=== PATIENT | female | born 1985 | race American Indian/Alaskan Native ===

== ENCOUNTER 2018-05-31 00:50 | Emergency (ER) | payer OTHER ==
--- NOTE | 2018-05-31 04:15 | Emergency Department Report ---
<NICOLÁS NAVARRETE - Last Filed: 05/31/18 05:25> ED Female HPI - General Chief complaint: Urogenital-Female Stated complaint: SMELL FROM VAGINA WITH PAIN Time Seen by Provider: 05/31/18 03:41 Source: patient Mode of arrival: Ambulatory Limitations: No Limitations - History of Present Illness Initial comments: 3-year-old -[place] female presents to the emergency room for vaginal itching with thick white odorous vaginal discharge 3 days. Patient denies any fever chills no abdominal pain. She reports she is sexually active with both males and females. She reports she is protecting one partner in the last 6 months 0. Past medical history of bipolar. Does not have a primary care provider. MD Complaint: vaginal discharge, pelvic pain Are you Now?: No Associated Symptoms: vaginal discharge - Related Data Previous Rx's Medication Instructions Recorded Last Taken Type metroNIDAZOLE [Metrocream] 1 applicator TP QHS #45 cream..g. 05/31/18 Unknown Rx Allergies Allergy/AdvReac Type Severity Reaction Status Date / Time No Known Allergies Allergy Unverified 05/31/18 00:53 ED Review of Systems Comment: All other systems reviewed and negative ED Past Medical Hx - Past Medical History Previous Medical History?: No - Surgical History Past Surgical History?: No - Social History Smoking Status: Never Smoker Substance Use Type: None - Medications Home Medications: Home Medications Medication Instructions Recorded Confirmed Last Taken Type metroNIDAZOLE [Metrocream] 1 applicator TP QHS #45 cream..g. 05/31/18 Unknown Rx ED Physical Exam - General Limitations: No Limitations General appearance: alert, in no apparent distress - Head Head exam: Present: atraumatic, normocephalic - Eye Eye exam: Present: normal appearance - ENT ENT exam: Present: mucous membranes moist - Neck Neck exam: Present: normal inspection - GI/Abdominal GI/Abdominal exam: Present: soft, tenderness (pelvic). Absent: distended - External exam: Present: normal external exam Speculum exam: Present: vaginal discharge, cervical discharge Bi-manual exam: Present: normal bi-manual exam, uterine tenderness. Absent: cervical motion tendernes, adnexal tenderness, uterine enlargement ED Disposition Clinical Impression: BV (bacterial vaginosis) Disposition: - TO HOME OR SELFCARE Is pt being admited?: No Does the pt Need Aspirin: No Condition: Stable Instructions: Bacterial Vaginosis (ED) Additional Instructions: Please use vaginal gel as prescribed. Follow-up with primary care provider symptoms persist or gets worse. You can bring your IDs that she medical records to obtain the results from your gonorrhea and chlamydia test in 5-7 days. I recommend following up with the health department to get further STD check. Prescriptions: metroNIDAZOLE [Metrocream] 1 applicator TP QHS #45 cream..g. Referrals: [facility] MD COLEMAN [Primary Care Provider] - 3-5 Days [facility] [Outside] - 3-5 Days [facility] [Outside] - 3-5 Days [facility] [Outside] - 3-5 Days Forms: STI Treatment and Prevention <CLINTON LONG - Last Filed: 05/31/18 05:53> ED Female HPI - History of Present Illness Initial comments: 33yo ED Review of Systems ROS: Stated complaint: SMELL FROM VAGINA WITH PAIN Other details as noted in HPI ED Course Vital Signs 05/31/18 05/31/18 05/31/18 00:54 00:56 05:36 Temperature 97.4 F L 97.4 F L Pulse Rate 93 H 84 92 H Respiratory 18 18 17 Rate Blood Pressure 103/78 103/78 O2 Sat by Pulse 100 100 100 Oximetry Critical care attestation.: If time is entered above; I have spent that time in minutes in the direct care of this critically ill patient, excluding procedure time. ED Disposition Is pt being admited?: No Does the pt Need Aspirin: No
[2018-05-31 04:20] LABS: Bilirubin,Urine NEG (Negative); Blood,Urine NEG (Negative); Color,Urine Yellow (Yellow); Mucus,Urine FEW /HPF; Protein,Urine <15 mg/dL mg/dL (Negative); Urobilinogen,Urine < 2.0 mg/dL (<2.0)
[2018-05-31 04:43] LABS: HCG Qualitative,Urine Negative (Negative)
[2018-05-31 20:01] VITALS: BP 103/78
== END 2018-05-31 05:36 | disposition home or self-care (01) ==
LOC: ED 00:50
DX: N76.0 Acute vaginitis (principal); B96.89 Other specified bacterial agents as the cause of diseases classified elsewhere
CPT/HCPCS: 81001; 81025; 87210; 87591

== ENCOUNTER 2019-04-03 21:55 | Emergency (ER) | payer OTHER ==
[2019-04-03 22:02] VITALS: BP 114/47
[2019-04-03 23:51] LABS: Bacteria,Urine 1+ /HPF (Negative); Mucus,Urine 3+ /HPF
[2019-04-04 00:12] LABS: Basophils # (Auto) 0.1 K/mm3 (0.0-0.1); Basophils % (Auto) 0.7 % (0.0-1.8); Eosinophils # (Auto) 0.1 K/mm3 (0.0-0.4); Eosinophils % (Auto) 0.9 % (0.0-4.3); Hematocrit 39.8 % (30.3-42.9); Hemoglobin 13.3 gm/dl (10.1-14.3); Lymphocytes # (Auto) 2.4 K/mm3 (1.2-5.4); Lymphocytes % (Auto) 32.1 % (13.4-35.0); Mean Corpuscular HGB Conc 33 % (30-34); Mean Corpuscular Volume 85 fl (79-97); Monocytes # (Auto) 0.5 K/mm3 (0.0-0.8); Monocytes % (Auto) 6.8 % (0.0-7.3); Platelet Count 276 K/mm3 (140-440); Red Blood Count 4.67 M/mm3 (3.65-5.03); Red Cell Distribution Width 13.6 % (13.2-15.2)
[2019-04-04 00:20] LABS: Bilirubin,Urine Negative (Negative); Blood,Urine Negative (Negative); Color,Urine Yellow (Yellow)
[2019-04-04 00:36] LABS: Alanine Aminotransferase 12 units/L (7-56); Albumin 4.4 g/dL (3.9-5); BUN/Creatinine Ratio 10; Blood Urea Nitrogen 8 mg/dL (7-17); Calcium 9.8 mg/dL (8.4-10.2); Hemolysis Index 4
--- NOTE | 2019-04-04 01:43 | Emergency Department Report ---
HPI - General Chief Complaint: Abdominal Pain Time Seen by Provider: 04/04/19 01:31 - [facility] HPI: Room 36\ The patient is a 33-year-old female present with a chief complaint of vaginal itching and abdominal pain. The patient states for the past 3 days she has had vaginal itching and discharge and pain in the left side of the pelvis. Patient denies dysuria or hematuria. Patient denies history of fever. Patient states her vaginal discharge is white in color ED Past Medical Hx - Past Medical History Previous Medical History?: No - Surgical History Past Surgical History?: No - Family History Family history: no significant - Social History Smoking Status: Current Every Day Smoker (1/2 pack/day) Substance Use Type: None (Denies illicit drug) - Medications Home Medications: Home Medications Medication Instructions Recorded Confirmed Last Taken Type metroNIDAZOLE [Metrocream] 1 applicator TP QHS #45 cream..g. 05/31/18 Unknown Rx Ibuprofen [Motrin 800 MG tab] 800 mg PO Q8HR PRN #20 tablet 04/04/19 Unknown Rx traMADoL [Ultram] 50 mg PO Q6HR PRN #10 tablet 04/04/19 Unknown Rx ED Review of Systems ROS: Stated complaint: VAGINAL ITCHING WITH DISCHARGE Other details as noted in HPI Constitutional: denies: fever Eyes: denies: eye pain ENT: denies: throat pain Respiratory: no symptoms reported Cardiovascular: denies: chest pain Endocrine: no symptoms reported Gastrointestinal: abdominal pain Genitourinary: discharge. denies: dysuria, hematuria Musculoskeletal: denies: back pain Neurological: denies: headache Physical Exam - Physical Exam Vital Signs: Vital Signs 04/03/19 04/03/19 22:01 23:07 Temperature 97.5 F L 97.5 F L Pulse Rate 91 H 98 H Respiratory 16 18 Rate Blood Pressure 114/47 114/47 O2 Sat by Pulse 97 98 Oximetry Physical Exam: GENERAL: The patient is well-developed well-nourished female lying on stretcher not appear to be in acute distress. [] HEENT: Normocephalic. Atraumatic. Extraocular motions are intact. Patient has moist mucous membranes. NECK: Supple. Trachea midline CHEST/LUNGS: Clear to auscultation. There is no respiratory distress noted. HEART/CARDIOVASCULAR: Regular. There is no tachycardia. There is no gallop rub or murmur. ABDOMEN: Abdomen is soft, with mild discomfort to palpation in the left pelvis. Patient has normal bowel sounds. There is no abdominal distention. SKIN: There is no rash. There is no edema. There is no diaphoresis. NEURO: The patient is awake, alert, and oriented. The patient is cooperative. The patient has normal speech MUSCULOSKELETAL: There is no evidence of acute injury. PELVIC: White discharge present in vault. ED Course Vital Signs 04/03/19 04/03/19 22:01 23:07 Temperature 97.5 F L 97.5 F L Pulse Rate 91 H 98 H Respiratory 16 18 Rate Blood Pressure 114/47 114/47 O2 Sat by Pulse 97 98 Oximetry ED Medical Decision Making - Lab Data Result diagrams: 04/03/19 23:53 04/03/19 23:53 Laboratory Tests 04/03/19 04/03/19 04/03/19 23:29 23:53 23:53 WBC 7.5 RBC 4.67 Hgb 13.3 Hct 39.8 MCV 85 MCH 28 MCHC 33 RDW 13.6 Plt Count 276 Lymph % (Auto) 32.1 Ness % (Auto) 6.8 Eos % (Auto) 0.9 Baso % (Auto) 0.7 Lymph # 2.4 Ness # 0.5 Eos # 0.1 Baso # 0.1 Seg Neutrophils % 59.5 Seg Neutrophils # 4.5 Sodium 142 Potassium 4.3 Chloride 103.3 Carbon Dioxide 27 Anion Gap 16 BUN 8 Creatinine 0.8 Estimated GFR > 60 BUN/Creatinine Ratio 10 Glucose 98 Calcium 9.8 Total Bilirubin 0.50 AST 28 ALT 12 Alkaline Phosphatase 86 Total Protein 7.7 Albumin 4.4 Albumin/Globulin Ratio 1.3 HCG, Qual Urine Color Yellow Urine Turbidity Clear Urine pH 5.0 Ur Specific Clayton 1.035 H Urine Protein 30 mg/dl Urine Glucose (UA) Negative Urine Ketones Negative Urine Blood Negative Urine Nitrite Negative Ur Reducing Substances Not Reportable Urine Bilirubin Negative Urine Ictotest Not Reportable Urine Urobilinogen 2.0 Ur Leukocyte Esterase Negative Urine WBC (Auto) 3.0 Urine RBC (Auto) 7.0 U Epithel Cells (Auto) 7.0 Urine Bacteria (Auto) 1+ Urine Mucus 3+ 04/03/19 23:53 WBC RBC Hgb Hct MCV MCH MCHC RDW Plt Count Lymph % (Auto) Ness % (Auto) Eos % (Auto) Baso % (Auto) Lymph # Ness # Eos # Baso # Seg Neutrophils % Seg Neutrophils # Sodium Potassium Chloride Carbon Dioxide Anion Gap BUN Creatinine Estimated GFR BUN/Creatinine Ratio Glucose Calcium Total Bilirubin AST ALT Alkaline Phosphatase Total Protein Albumin Albumin/Globulin Ratio HCG, Qual Negative Urine Color Urine Turbidity Urine pH Ur Specific Clayton Urine Protein Urine Glucose (UA) Urine Ketones Urine Blood Urine Nitrite Ur Reducing Substances Urine Bilirubin Urine Ictotest Urine Urobilinogen Ur Leukocyte Esterase Urine WBC (Auto) Urine RBC (Auto) U Epithel Cells (Auto) Urine Bacteria (Auto) Urine Mucus Wet prep-less than 20% clue cells, no trichomonas no yeast - Differential Diagnosis UTI, bacterial vaginosis, urethritis Critical care attestation.: If time is entered above; I have spent that time in minutes in the direct care of this critically ill patient, excluding procedure time. ED Disposition Clinical Impression: Vaginal discharge Disposition: DC- TO HOME OR SELFCARE Is pt being admited?: No Does the pt Need Aspirin: No Condition: Stable Instructions: Abdominal Pain (ED) Additional Instructions: Return to the emergency department should you develop worsening symptoms, inability to tolerate food or liquids, high fever or any other concerns Prescriptions: Ibuprofen [Motrin 800 MG tab] 800 mg PO Q8HR PRN #20 tablet PRN Reason: Pain, Moderate (4-6) traMADoL [Ultram] 50 mg PO Q6HR PRN #10 tablet PRN Reason: Pain Referrals: TYLER SIMMONS MD [Staff Physician] - 3-5 Days (Dr. Simmons is a excellence coach. Please follow-up with her for further evaluation) Time of Disposition: 02:40
[2019-04-04] MEDS ORDERED: LIDOCAINE-MPF (1%) 10 MG/1 ML VIAL 5 ML INFILTRATI ONE (02:36)
[2019-04-04] MEDS ORDERED: AZITHROMYCIN 1 GM ORAL PWDR PACKET PO ONE (02:36)
== END 2019-04-04 03:20 | disposition home or self-care (01) ==
LOC: ED 21:55
DX: N89.8 Other specified noninflammatory disorders of vagina (principal); F17.200 Nicotine dependence, unspecified, uncomplicated
CPT/HCPCS: 36415; 80053; 81001; 84703; 85025; 87210; 87591; 96372; 99284; J0696

== ENCOUNTER 2019-05-15 15:33 | Emergency (ER) | payer SELFPAY ==
--- NOTE | 2019-05-15 19:16 | Emergency Department Report ---
Chief Complaint: Upper Respiratory Infection Stated Complaint: FLU SYM Time Seen by Provider: 05/15/19 19:16 - HPI History of Present Illness: Pt state that she has weakness, flu-like symptoms and nausea x 1 day. - ROS Review of Systems: All systems reviewed and negative. - Exam Vital Signs: Vital Signs Reviewed 05/15/19 16:04 Temperature 98.0 F Pulse Rate 103 H Respiratory 16 Rate Blood Pressure 108/70 O2 Sat by Pulse 98 Oximetry Physical Exam: General WNL HEENNT-WNL Lungs-WNL Heart-WNL Abdomen-WNL MS-WNL Neuro-WNL Psych-WNL MSE screening note: Focused history and physical exam performed. Due to findings the following was ordered: Pt was explained that she will be MSE screened out, continue fluids and taken Zofran as directed. F/U with PCP and see ER as needed. Patient discussed with doctor:: OANH MOY ED Medical Decision Making - Medical Decision Making Pt was explained that she will be MSE screened out, continue fluids and taken Zofran as directed. F/U with PCP and see ER as needed. ED Disposition for MSE Clinical Impression: Flu-like symptoms Disposition: Z- MED SCREENING EXAM-LEFT Is pt being admited?: No Does the pt Need Aspirin: No Condition: Stable Additional Instructions: Pt was explained that she will be MSE screened out, continue fluids and taken Zofran as directed. F/U with PCP and see ER as needed. Prescriptions: Ondansetron [Zofran Odt] 4 mg PO Q8HR #8 tab.rapdis Referrals: PRIMARY CARE, [Primary Care Provider] - 3-5 Days [facility] [Outside] - 3-5 Days Time of Disposition: 19:19 Print Language: BAHRAINI
[2019-05-16 00:30] VITALS: BP 120/77
== END 2019-05-16 00:41 | disposition left against medical advice (07) ==
LOC: ED 15:33
DX: J11.1 Influenza due to unidentified influenza virus with other respiratory manifestations (principal)
CPT/HCPCS: 99282

== ENCOUNTER 2019-12-24 21:58 | Emergency (ER) | payer OTHER ==
[2019-12-24 23:34] VITALS: BP 98/66
[2019-12-25 01:33] LABS: Bacteria,Urine 1+ /HPF (Negative); Bilirubin,Urine NEG (Negative); Blood,Urine NEG (Negative); Color,Urine Yellow (Yellow); Mucus,Urine FEW /HPF; Protein,Urine <15 mg/dL mg/dL (Negative); Urobilinogen,Urine < 2.0 mg/dL (<2.0); WBC,Urine < 1.0 /HPF (0.0-6.0)
[2019-12-25 01:42] LABS: HCG Qualitative,Urine Negative (Negative)
[2019-12-25] MEDS ORDERED: ACETAMINOPHEN 325 MG TAB PO ONE (03:10)
--- NOTE | 2019-12-25 06:29 | Emergency Department Report ---
ED Female HPI - General Chief complaint: Urogenital-Female Stated complaint: ITCHY FROM VAGINA/BURNING Source: patient Mode of arrival: Ambulatory Limitations: No Limitations - History of Present Illness Initial comments: Patient is a A0 34-year-old -[place] female with no past medical history who presents to the ED with complaint of acute onset persistent dysuria, urinary frequency and urgency and vaginal discharge for the last 2 days. Patient denies fever, chills, nausea, vomiting, dizziness, syncope, dyspareunia, back pain, abdominal pain, cough or sore throat. MD Complaint: vaginal discharge, dysuria -: Sudden, days(s) (3) Location: other (vagina) Radiation: non-radiating Severity: moderate Severity scale (0 -10): 3 Quality: burning Consistency: constant Improves with: none Worsens with: urination Are you Now?: No Associated Symptoms: denies other symptoms, vaginal discharge, dysuria. denies: vaginal bleeding, abdominal pain, nausea/vomiting, fever/chills, headaches, loss of appetite, hematuria, rash, seizure, shortness of breath, syncope, weakness - Related Data Sexually active: Yes : 2 Para: 2 A: 0 Previous Rx's Medication Instructions Recorded Last Taken Type metroNIDAZOLE [Metrocream] 1 applicator TP QHS #45 cream..g. 05/31/18 Unknown Rx Ibuprofen [Motrin 800 MG tab] 800 mg PO Q8HR PRN #20 tablet 04/04/19 Unknown Rx traMADoL [Ultram] 50 mg PO Q6HR PRN #10 tablet 04/04/19 Unknown Rx Ondansetron [Zofran Odt] 4 mg PO Q8HR #8 tab.rapdis 05/15/19 Unknown Rx metroNIDAZOLE [Flagyl] 500 mg PO Q12HR #14 tab 12/25/19 Unknown Rx Allergies Allergy/AdvReac Type Severity Reaction Status Date / Time No Known Allergies Allergy Verified 05/26/19 08:14 ED Review of Systems ROS: Stated complaint: ITCHY FROM VAGINA/BURNING Other details as noted in HPI Constitutional: denies: chills, fever Eyes: denies: eye pain, eye discharge, vision change ENT: denies: ear pain, throat pain Respiratory: denies: cough, shortness of breath, wheezing Cardiovascular: denies: chest pain, palpitations Endocrine: no symptoms reported Gastrointestinal: denies: abdominal pain, nausea, diarrhea Genitourinary: urgency, dysuria, frequency, discharge Musculoskeletal: denies: back pain, joint swelling, arthralgia Skin: denies: rash, lesions Neurological: denies: headache, weakness, paresthesias Psychiatric: denies: anxiety, depression Hematological/Lymphatic: denies: easy bleeding, easy bruising ED Past Medical Hx - Past Medical History Previous Medical History?: Yes Hx Psychiatric Treatment: Yes (Bi polar/schizoaffective disorder) - Surgical History Past Surgical History?: Yes Additional Surgical History: C section - Social History Smoking Status: Current Every Day Smoker - Medications Home Medications: Home Medications Medication Instructions Recorded Confirmed Last Taken Type metroNIDAZOLE [Metrocream] 1 applicator TP QHS #45 cream..g. 05/31/18 Unknown Rx Ibuprofen [Motrin 800 MG tab] 800 mg PO Q8HR PRN #20 tablet 04/04/19 Unknown Rx traMADoL [Ultram] 50 mg PO Q6HR PRN #10 tablet 04/04/19 Unknown Rx Ondansetron [Zofran Odt] 4 mg PO Q8HR #8 tab.rapdis 05/15/19 Unknown Rx metroNIDAZOLE [Flagyl] 500 mg PO Q12HR #14 tab 12/25/19 Unknown Rx ED Physical Exam - General Limitations: No Limitations General appearance: alert, in no apparent distress - Head Head exam: Present: atraumatic, normocephalic, normal inspection - Eye Eye exam: Present: normal appearance, PERRL, EOMI Pupils: Present: normal accommodation - ENT ENT exam: Present: normal exam, normal orophraynx, mucous membranes moist, TM's normal bilaterally, normal external ear exam - Neck Neck exam: Present: normal inspection, full ROM - Respiratory Respiratory exam: Present: normal lung sounds bilaterally. Absent: respiratory distress, wheezes, rales, rhonchi, chest wall tenderness, accessory muscle use, decreased breath sounds, prolonged expiratory - Cardiovascular Cardiovascular Exam: Present: regular rate, normal rhythm, normal heart sounds. Absent: systolic murmur, diastolic murmur, rubs, gallop - GI/Abdominal GI/Abdominal exam: Present: soft, normal bowel sounds. Absent: tenderness, guarding, rebound, hyperactive bowel sounds, hypoactive bowel sounds, organomegaly - Bi-manual exam: Present: other (Pelvic exam deferred, patient preferred to self swab) - Extremities Exam Extremities exam: Present: normal inspection, full ROM, normal capillary refill - Back Exam Back exam: Present: normal inspection, full ROM. Absent: tenderness, CVA tenderness (R), CVA tenderness (L), muscle spasm, paraspinal tenderness, verteb ral tenderness - Neurological Exam Neurological exam: Present: alert, oriented X3, CN II-XII intact, normal gait, reflexes normal - Psychiatric Psychiatric exam: Present: normal affect, normal mood - Skin Skin exam: Present: warm, dry, intact, normal color. Absent: rash ED Course Vital Signs 12/24/19 23:21 Temperature 98.1 F Pulse Rate 70 Respiratory 18 Rate Blood Pressure 98/66 O2 Sat by Pulse 100 Oximetry ED Medical Decision Making - Medical Decision Making This is a A0 34-year-old -[place] female with no past medical history who presents to the ED with complaint of acute onset persistent dysuria, urinary frequency and urgency and vaginal discharge for the last 2 days. In the ED, patient is alert and oriented x3 and is not in distress. Urinalysis is unremarkable. Wet prep was positive for Gardnerella vaginalis. Patient was treated for pain in the ED. Patient was discharged home on antibiotics and advised to follow-up with her primary care physician in 5 to 7 days for reevaluation or return to the ED immediately if symptoms get worse. - Differential Diagnosis UTI; Bacterial vaginosis; STD; Critical care attestation.: If time is entered above; I have spent that time in minutes in the direct care of this critically ill patient, excluding procedure time. ED Disposition Clinical Impression: Bacterial vaginosis, Dysuria Disposition: - TO HOME OR SELFCARE Is pt being admited?: No Does the pt Need Aspirin: No Condition: Stable Instructions: Bacterial Vaginosis (ED), Bacterial Vaginosis, [id number] Additional Instructions: Take medications with food, drink plenty of fluids and follow-up with your primary care physician in 7 to 10 days for reevaluation. Return to the ED immediately if symptoms get worse. Prescriptions: metroNIDAZOLE [Flagyl] 500 mg PO Q12HR #14 tab Referrals: [facility] [Outside] - 3-5 Days [facility] [Provider Group] - 7-10 days Forms: STI Treatment and Prevention Time of Disposition: 06:28 Print Language: UZBEK
== END 2019-12-25 07:21 | disposition home or self-care (01) ==
LOC: ED 21:58
DX: N76.0 Acute vaginitis (principal); B96.89 Other specified bacterial agents as the cause of diseases classified elsewhere; R30.0 Dysuria; F31.9 Bipolar disorder, unspecified; F17.200 Nicotine dependence, unspecified, uncomplicated; Z98.890 Other specified postprocedural states; Z79.1 Long term (current) use of non-steroidal anti-inflammatories (NSAID); Z79.899 Other long term (current) drug therapy
CPT/HCPCS: 81001; 81025; 87210

== ENCOUNTER 2020-08-19 15:18 | Emergency (ER) | payer OTHER | END 2020-08-19 16:40 | disposition left against medical advice (07) | LOC: ED 15:18 | DX: N89.8 Other specified noninflammatory disorders of vagina (principal); Z53.21 Procedure and treatment not carried out due to patient leaving prior to being seen by health care provider ==

== ENCOUNTER 2021-08-20 10:08 | Outpatient (CLI) | payer OTHER ==
[2021-08-20] MEDS ORDERED: ONDANSETRON 4 MG/2 ML INJ IV NR (11:46)
[2021-08-20] MEDS ORDERED: LACTATED RINGERS 1,000 ML ONE (11:50)
[2021-08-20 11:56] VITALS: BP 89/54
[2021-08-20] MEDS ORDERED: LACTATED RINGERS 1,000 ML IV ONE (12:00)
[2021-08-20 14:17] LABS: Amphetamine Screen,Urine Negative; Benzodiazepines Screen,Urine Negative; Cannabinoid Screen,Urine Negative; Cocaine Screen,Urine Negative; Methadone Screen,Urine Negative; Opiate Screen,Urine Negative
[2021-08-20 15:01] LABS: Bilirubin,Urine Negative (Negative); Blood,Urine Negative (Negative); Color,Urine Straw (Yellow); Protein,Urine <15 mg/dL mg/dL (Negative); Urobilinogen,Urine < 2.0 mg/dL (<2.0)
== END 2021-08-20 15:12 | disposition home or self-care (01) ==
LOC: TRG 10:08 → APU 10:12 → TRG 15:12
PROVIDERS: ATTEND Obstetrics & Gynecology
DX: O21.2 Late vomiting of pregnancy (principal); O26.893 Other specified pregnancy related conditions, third trimester; R42 Dizziness and giddiness; O99.333 Smoking (tobacco) complicating pregnancy, third trimester; F31.9 Bipolar disorder, unspecified; F20.9 Schizophrenia, unspecified; Z3A.39 39 weeks gestation of pregnancy
CPT/HCPCS: 59025; 80307; 81001; 96365; J2405; J7120; 96360; 96374